=== PATIENT | female | born 1945 | race Two or more races ===

== ENCOUNTER 2022-09-12 15:42 | Inpatient (IN) | payer MEDICARE, OTHER ==
[~2022-09-12] VITALS: Ht 154.9 cm; Wt 82.8 kg
--- NOTE | 2022-09-12 16:00 | NUR ---
BIB SON FOR AV RIGHT AV SHUNT MALFUNCTION. NO BLEEDING NOTED. SENT BY PMD
--- NOTE | 2022-09-12 16:14 | NUR ---
blood sample obtained
--- NOTE | 2022-09-12 16:14 | NUR ---
covid swab taken
[2022-09-12] MEDS ORDERED: INSU100I19 SQ (16:15)
[2022-09-12] MEDS ORDERED: ATOR10TA PO (16:15)
[2022-09-12] MEDS ORDERED: CARV12.52 PO (16:15)
[2022-09-12] MEDS ORDERED: INSU100I4 SQ (16:15)
[2022-09-12] MEDS ORDERED: LANT10005 PO (16:16)
[2022-09-12 17:03] LABS: CALCIUM, SERUM 9.6 mg/dL (8.5-10.1); CARBON DIOXIDE 27 mmol/L (21-32); CHLORIDE 101 mmol/L (98-107); CREATININE 4.9 mg/dL (0.6-1.3); GLUCOSE 86 mg/dL (74-106); POTASSIUM 3.9 mmol/L (3.5-5.1); SODIUM SERUM 136 mmol/L (136-145); UREA NITROGEN, BLOOD 49 mg/dL (7-18)
[2022-09-12 17:32] LABS: BASOPHILS % (AUTO) 0.3 % (0.0-2.0); EOSINOPHILS % (AUTO) 5.7 % (0.0-6.0); HEMATOCRIT 27 % (33-45); HEMOGLOBIN 8.6 g/dL (11.5-14.8); LYMPHOCYTES # (AUTO) 0.7 K/uL (0.8-4.8); MEAN CORPUSCULAR HGB CONC 32 g/dl (31.0-36.0); MEAN CORPUSCULAR VOLUME 99 fL (82-100); MONOCYTES # (AUTO) 0.4 K/uL (0.1-1.30); MONOCYTES % (AUTO) 12.4 % (2.0-12.0); NEUTROPHILS # (AUTO) 2.2 K/uL (1.8-8.9); NEUTROPHILS % (AUTO) 60.6 % (43.0-81.0); PLATELET COUNT (AUTO) 113 K/uL (150-450); RED BLOOD CELL COUNT(AUTO) 2.73 MIL/uL (4.0-5.2); WHITE BLOOD COUNT (AUTO) 3.6 K/uL (4.3-11.0)
--- NOTE | 2022-09-12 17:34 | NUR ---
DR. DONALD SPEAKING WITH DR. CASTELLON ON THE PHONE
--- NOTE | 2022-09-12 17:34 | NUR ---
Dr. Gruber "vascular DrKamlesh " from [place]
--- NOTE | 2022-09-12 17:48 | NUR ---
ESTABLISHED IV ACCESS LEFT FOREARM 20G.
--- NOTE | 2022-09-12 18:17 | NUR ---
report given to Paola EVERETT
[2022-09-12] MEDS ORDERED: MAGNESIUM HYDROXIDE 30 ML UDC PO PRN (19:00)
[2022-09-12] MEDS ORDERED: HYDROCODONE/APAP 5/325MG TABLET PO PRN (19:00)
[2022-09-12] MEDS ORDERED: Z GUARD REMEDY 4 OZ OINT TP PRN (19:00)
[2022-09-12] MEDS ORDERED: ZOLPIDEM TARTRATE 5 MG TABLET PO PRN (19:00)
[2022-09-12] MEDS ORDERED: ONDANSETRON HCL/PF 4 MG/2 ML VIAL IVP PRN (19:00)
[2022-09-12] MEDS ORDERED: MAG HYDROX/AL HYDROX/SIMETH 30 ML UDC PO PRN (19:00)
--- NOTE | 2022-09-12 19:23 | NUR ---
patient taken to assigned room assignement safely
--- NOTE | 2022-09-12 19:50 | NUR ---
MS MEAT PULLER NOTES PATIENT WAS TRANSFERRED FROM ER VIA GURNEY, WITH NO SIGN OF DISTRESS. ORIENTED PATIENT TO ROOM SET UP AND EDUCATED PATIENT ON THE USE OF CALL LIGHT. VS TAKEN, STABLE AND RECORDED. BP 141/66, TEMP- 97.8, RESP-18, PULSE RATE- 70, O2- 98. PATIENT IS AWAKE, ALERT AND ORIENTED. A/O X 4. AMHARIC SPEAKING ONLY. NO S/S OF PAIN NOTED AT THIS TIME. IV ACCESS ON THE LEFT FOREARM #20G, INTACT AND PATENT, SALINE LOCK. AV FISTULA ON THE RIGHT UPPER ARM. SKIN ASSESSMENT DONE AND PICTURES TAKEN. SAFETY PRECAUTIONS GIVEN WITH BED IN LOWEST AND LOCKED POSITION. SIDE RAILS UP X 2. CALL LIGHT AND TRAY WITHIN EASY REACH. WILL CONTINUE WITH THE PLAN OF CARE.
[2022-09-12 20:00] VITALS: BP 141/66
--- NOTE | 2022-09-12 20:20 | NUR ---
RN NOTES DVT PUMP GIVEN TO PATIENT. WILL CONTINUE TO MONITOR.
--- NOTE | 2022-09-12 20:20 | NUR ---
RN NOTES PATIENT HAD SOB AFTER EXERTION DURING SKIN ASSESSMENT. GIVEN O2 VIA NASAL CANNULA FOR COMFORT. WILL CONTINUE TO MONITOR PATIENT.
[2022-09-13 06:38] LABS: BASOPHILS % (AUTO) 0.3 % (0.0-2.0); EOSINOPHILS % (AUTO) 5.1 % (0.0-6.0); HEMATOCRIT 25 % (33-45); HEMOGLOBIN 8.1 g/dL (11.5-14.8); LYMPHOCYTES # (AUTO) 0.9 K/uL (0.8-4.8); LYMPHOCYTES % (AUTO) 25.1 % (20.0-44.0); MEAN CORPUSCULAR HGB CONC 32 g/dl (31.0-36.0); MEAN CORPUSCULAR VOLUME 99 fL (82-100); MONOCYTES # (AUTO) 0.5 K/uL (0.1-1.30); NEUTROPHILS # (AUTO) 1.9 K/uL (1.8-8.9); NEUTROPHILS % (AUTO) 54.5 % (43.0-81.0); PLATELET COUNT (AUTO) 110 K/uL (150-450); RED BLOOD CELL COUNT(AUTO) 2.52 MIL/uL (4.0-5.2); WHITE BLOOD COUNT (AUTO) 3.6 K/uL (4.3-11.0)
--- NOTE | 2022-09-13 07:10 | NUR ---
RN NOTES VITO FROM SURGERY CALLED FOR PERMACATH PLACEMENT AT 1300. PATIENT ON NPO SINCE MIDNIGHT. ENDORSED TO THE NEXT SHIFT.
[2022-09-13 07:15] LABS: CALCIUM, SERUM 9.4 mg/dL (8.5-10.1); CARBON DIOXIDE 28 mmol/L (21-32); CHLORIDE 99 mmol/L (98-107); CREATININE 5.6 mg/dL (0.6-1.3); GLUCOSE 171 mg/dL (74-106); MAGNESIUM 2.8 mg/dL (1.8-2.4); POTASSIUM 4.2 mmol/L (3.5-5.1); SODIUM SERUM 135 mmol/L (136-145); UREA NITROGEN, BLOOD 54 mg/dL (7-18)
--- NOTE | 2022-09-13 07:26 | NUR ---
MS RN CLOSING NOTES PATIENT IN BED SLEEPING COMFORTABLY. EASILY BE AWAKEN BY VERBAL STIMULI. A/O X 4. FRISIAN SPEAKING ONLY. NO S/S OF PAIN NOTED AT THIS TIME. IV ACCESS ON THE LEFT FOREARM #20G, INTACT AND PATENT, SALINE LOCK. AV FISTULA ON THE RIGHT UPPER ARM. SKIN ASSESSMENT DONE AND PICTURES TAKEN. PATIENT ON PURE WICK, 100ML SUCTIONED AND YELLOW AND CLOUDY URINE. SAFETY PRECAUTIONS MAINTAINED WITH BED IN LOWEST AND LOCKED POSITION. SIDE RAILS UP X 2. CALL LIGHT AND TRAY WITHIN EASY REACH. WILL ENDORSE TO THE NEXT SHIFT.
[2022-09-13] MEDS: PANTOPRAZOLE 40 MG TABLET.DR PO SCH (07:30)
--- NOTE | 2022-09-13 07:56 | NUR ---
MS RN OPENING NOTE Patient in bed, awake. A/O x 4, Thai speaking. On room air, breathing evenly and unlabored. No SOB or s/s of distress noted. IV access on LFA #20 SL, intact and patent. Purewick in place draining to a yellow colored urine. Safety precautions in place: bed in low, locked position; siderails up x 2; call light within reach. Will continue to monitor.
[2022-09-13 08:00] VITALS: BP 132/59
--- NOTE | 2022-09-13 12:40 | NUR ---
RN NOTE Patient wheeled to OR for Permacath placement.
[2022-09-13] MEDS ORDERED: IOHEXOL 240MG/ML 50 ML IV ONE (12:51)
[2022-09-13] MEDS ORDERED: HEPARIN SODIUM, PORCINE 1,000 UNIT/ML VIAL ONE (12:51)
[2022-09-13] MEDS ORDERED: LIDOCAINE HCL/MPF 1% 30 ML VIAL IJ ONE (12:51)
[2022-09-13] MEDS: CALCIUM ACETATE 667 MG CAP/TAB PO SCH ×2 (13:00→17:08)
[2022-09-13] MEDS ORDERED: FENTANYL PF 100MCG/2ML AMPUL ONE (13:01)
--- NOTE | 2022-09-13 14:45 | NUR ---
RN NOTE Patient came back from OR, procedure was successful. Permacath now on RCW, dressing is c/d/i, no bleeding noted. Vital signs taken as follows: BP 133/46, HR 66, RR 18, Temp 97.3, SPO2 100 %. Will continue to monitor. Addendum: 09/13/22 at 1511 by CECI QUEVEDO RN ADD: Per Dr. Pinzon, permacath is okay to use.
--- NOTE | 2022-09-13 15:00 | NUR ---
RN NOTE Patient remains stable with Vital signs as follows: BP 140/47, HR 64, RR 20, Temp 97.4, SPO2 99%. Surgical dressing remains c/d/i, no bleeding noted. Will continue to monitor.
--- NOTE | 2022-09-13 15:15 | NUR ---
RN NOTE Patient remains stable with Vital signs as follows: BP 130/50, HR 65, RR 19, Temp 97.7, SPO2 100%. Surgical dressing remains c/d/i, no bleeding noted. Will continue to monitor.
--- NOTE | 2022-09-13 15:30 | NUR ---
RN NOTE Patient remains stable with Vital signs as follows: BP 110/52, HR 67, RR 19, Temp 97.5, SPO2 100%. Surgical dressing remains c/d/i, no bleeding noted. Will continue to monitor.
[2022-09-13 15:39] VITALS: BP 140/47
--- NOTE | 2022-09-13 15:45 | NUR ---
RN NOTE Patient remains stable with Vital signs as follows: BP 105/53, HR 66, RR 19, Temp 97.4, SPO2 100%. Surgical dressing remains c/d/i, no bleeding noted. Will continue to monitor.
[2022-09-13] MEDS ORDERED: ANESTHESIA TRAY IN PYXIS 1 EA TRAY MC ONE (15:54)
[2022-09-13] MEDS: ACETAMINOPHEN 325 MG TABLET PO PRN (16:15)
--- NOTE | 2022-09-13 16:15 | NUR ---
RN NOTE Patient complained of headache, PRN Tylenol 650 mg PO given. Will continue to monitor.
--- NOTE | 2022-09-13 18:47 | NUR ---
MS MARGUERITE OPENING NOTE Patient in bed, resting. A/O x 4, North Korean speaking. On room air, breathing evenly and unlabored. No SOB or s/s of distress noted. IV access on LFA #20 SL, intact and patent. Purewick in place draining to an shikha colored urine with an output of 80 cc. RCW permacath in place. All needs attended to. Due meds given. Safety precautions in place: bed in low, locked position; siderails up x 2; call light within reach. Will endorse to shift superintendent caustic cresylate nurse for TOBY. Addendum: 09/13/22 at 1849 by CECI QUEVEDO RN CORRECTION: MS EVERETT CLOSING NOTE
--- NOTE | 2022-09-13 18:49 | NUR ---
MS RN CLOSING NOTE Patient in bed, resting. A/O x 4, Cypriot speaking. On room air, breathing evenly and unlabored. No SOB or s/s of distress noted. IV access on LFA #20 SL, intact and patent. Purewick in place draining to an shikha colored urine with an output of 80 cc. RCW permacath in place. All needs attended to. Due meds given. Safety precautions in place: bed in low, locked position; siderails up x 2; call light within reach. Will endorse to [employer] shift lead nurse for TOBY.
--- NOTE | 2022-09-13 19:00 | NUR ---
PATIENT RECEIVED FROM DAY SHIFT NURSE AWAKE AND ALERT. VITAL SIGNS STABLE. PATIENT HAD DIALYSIS TODAY. 500ML OUTPUT PER DIALYSIS NURSE. PT HAD NO COMPLAINS OF PAIN. PT S/P PERM CATH RIGHT CHEST NO SIGNS OF REDNESS OR BLEEDING NOTED. SALINE LOCK LEFT ARM DRY PATENT AND INTACT. PATIENT IN BED WATCHING TV NO SIGNS OF ACUTE DISTRESS NOTED.
[2022-09-13 20:00] VITALS: BP 134/65
[2022-09-13] MEDS: CEFAZOLIN 1 GM in IV D5W 50 ML IV SCH (21:17)
[2022-09-14] MEDS: CEFAZOLIN 1 GM in IV D5W 50 ML IV SCH (05:38)
[2022-09-14 06:13] LABS: BASOPHILS % (AUTO) 0.3 % (0.0-2.0); HEMATOCRIT 26 % (33-45); HEMOGLOBIN 8.3 g/dL (11.5-14.8); LYMPHOCYTES # (AUTO) 0.8 K/uL (0.8-4.8); LYMPHOCYTES % (AUTO) 19.3 % (20.0-44.0); MEAN CORPUSCULAR HGB CONC 32 g/dl (31.0-36.0); MEAN CORPUSCULAR VOLUME 100 fL (82-100); MONOCYTES # (AUTO) 0.5 K/uL (0.1-1.30); MONOCYTES % (AUTO) 12.9 % (2.0-12.0); NEUTROPHILS # (AUTO) 2.6 K/uL (1.8-8.9); NEUTROPHILS % (AUTO) 63.5 % (43.0-81.0); PLATELET COUNT (AUTO) 112 K/uL (150-450); RED BLOOD CELL COUNT(AUTO) 2.61 MIL/uL (4.0-5.2); WHITE BLOOD COUNT (AUTO) 4.2 K/uL (4.3-11.0)
[2022-09-14 06:23] LABS: CALCIUM, SERUM 9.4 mg/dL (8.5-10.1); CARBON DIOXIDE 23 mmol/L (21-32); CHLORIDE 99 mmol/L (98-107); CREATININE 6.7 mg/dL (0.6-1.3); GLUCOSE 134 mg/dL (74-106); MAGNESIUM 2.8 mg/dL (1.8-2.4); PHOSPHORUS 6.5 mg/dL (2.5-4.9); POTASSIUM 4.8 mmol/L (3.5-5.1); SODIUM SERUM 135 mmol/L (136-145); UREA NITROGEN, BLOOD 60 mg/dL (7-18)
--- NOTE | 2022-09-14 07:41 | NUR ---
REPORT GIVEN TO INCOMING NURSE. PATIENT IN STABLE CONDITION. PATIENT RECEIVING DIALYSIS. DIALYSIS PORT INTACT AND SALINE LOCK PATENT. NO ACUTE DISTRESS NOTED.
--- NOTE | 2022-09-14 07:45 | NUR ---
MSSN RECEIVED PATIENT AWAKE A/O X 4 WITH ONGOING HEMODIALYSIS// TOLERATING WELL//VITAL SIGNS STABLE// NO SIGNS OF DISTRESS NOTED
[2022-09-14 08:00] VITALS: BP 125/64
[2022-09-14] MEDS: PANTOPRAZOLE 40 MG TABLET.DR PO SCH (08:28)
[2022-09-14] MEDS: CALCIUM ACETATE 667 MG CAP/TAB PO SCH ×2 (08:28→13:35)
--- NOTE | 2022-09-14 10:00 | NUR ---
MSSN DIALYSIS DONE WITH 2 L OUT TOLERATED WELL WITH STABLE VITAL SIGNS WAS SEEN BY WOUND NURSE WITH ORDERS MADE AND CARRIED OUT
--- NOTE | 2022-09-14 10:13 | NUR ---
WOUND CARE CONSULT: RECEIVED CONSULT FOR UPPER EXTREMITIES DISCOLORATIONS. PT NOTED TO HAVE SCARRING TO LOWER BUTTOCKS WHICH IS RAISED. RECOMMENDATIONS MADE FOR SKIN PROTECTION. DISCUSSED WITH NURSING STAFF. PT USING PURE WICK SYSTEM FOR URINARY INCONTINENCE. PT DEMONSTRATES ABILITY TO ASSIST WITH TURNING AND REPOSITIONING IN BED. MD IN AGREEMENT WITH PLAN OF CARE.
--- NOTE | 2022-09-14 10:45 | NUR ---
MSSN WAS SEEN BY DR. CASTELLON WITH ORDER TO GO HOME TODAY WILL WAIT FOR SON TO PICK HER UP
[2022-09-14] MEDS: ACETAMINOPHEN 325 MG TABLET PO PRN (15:00)
--- NOTE | 2022-09-14 15:45 | NUR ---
MSSN DISCHARGE INSTRUCTIONS GIVEN AND UNDERSTOOD CHANGED DRESSING FOR RIGHT PERMACATH// NO S/S OF BLEEDING WENT HOME ACCOMPANIED BY SON ALL NEEDS ATTENDED
== END 2022-09-14 15:45 | disposition home or self-care (01) | DRG 314 ==
LOC: ER 15:49 → MED 18:42
PROVIDERS: ADMIT Student in an Organized Health Care Education/Training Program; ATTEND Student in an Organized Health Care Education/Training Program
PROC: 0JH63XZ Insertion of Tunneled Vascular Access Device into Chest Subcutaneous Tissue and Fascia, Percutaneous Approach (ICD-10-PCS; principal; 2022-09-13)
PROC: 05HM33Z Insertion of Infusion Device into Right Internal Jugular Vein, Percutaneous Approach (ICD-10-PCS; 2022-09-13)
PROC: B513YZA Fluoroscopy of Right Jugular Veins using Other Contrast, Guidance (ICD-10-PCS; 2022-09-13)
PROC: B518YZZ Fluoroscopy of Superior Vena Cava using Other Contrast (ICD-10-PCS; 2022-09-13)
PROC: 5A1D70Z Performance of Urinary Filtration, Intermittent, Less than 6 Hours Per Day (ICD-10-PCS; 2022-09-14)
DX: T82.898A Other specified complication of vascular prosthetic devices, implants and grafts, initial encounter (principal); N18.6 End stage renal disease; I12.0 Hypertensive chronic kidney disease with stage 5 chronic kidney disease or end stage renal disease; D61.818 Other pancytopenia; Y71.2 Prosthetic and other implants, materials and accessory cardiovascular devices associated with adverse incidents; Y92.89 Other specified places as the place of occurrence of the external cause; Y83.2 Surgical operation with anastomosis, bypass or graft as the cause of abnormal reaction of the patient, or of later complication, without mention of misadventure at the time of the procedure; E11.22 Type 2 diabetes mellitus with diabetic chronic kidney disease; E78.5 Hyperlipidemia, unspecified; Z79.4 Long term (current) use of insulin; Z79.899 Other long term (current) drug therapy; E83.39 Other disorders of phosphorus metabolism; M89.8X9 Other specified disorders of bone, unspecified site; Z99.2 Dependence on renal dialysis; Z20.822 Contact with and (suspected) exposure to COVID-19
CPT/HCPCS: 36415; 71045-TC; 80048-TC; 82962-TC; 83735-TC; 84100-TC; 85025-TC; 85730-TC; 86706; 87081-TC; 87340; 90935-TC; A4649; C1750; C9803; G0378; J0690; J1644; J2704; J3010; J3490; J7030; J7040; J7060; Q9966